=== PATIENT | female | born 2000 | race Caucasian/White ===

== ENCOUNTER 2023-12-30 14:09 | Emergency (ER) | payer MEDICARE, MEDICAID ==
[~2023-12-30] VITALS: Ht 165.1 cm; Wt 78.0 kg
[2023-12-30 14:12] VITALS: O2SAT 98
[2023-12-30] MEDS ORDERED: ACETAMINOPHEN 500MG TABLET PO ONE (15:15)
[2023-12-30 19:58] VITALS: BP 108/77; PULSE 82; RESP 15; TEMP 98.6
== END 2023-12-30 20:04 | disposition home or self-care (01) ==
LOC: ER 14:09
DX: S00.512A Abrasion of oral cavity, initial encounter (principal); R56.9 Unspecified convulsions; X58.XXXA Exposure to other specified factors, initial encounter; Y93.89 Activity, other specified; Y92.89 Other specified places as the place of occurrence of the external cause; Y99.8 Other external cause status
CPT/HCPCS: 81025; 82962; 99285